=== PATIENT | female | born 1965 | race Caucasian/White ===

== ENCOUNTER 2017-01-30 21:33 | Observation (INO) ==
[2017-01-30 22:27] LABS: MANUAL DIFF NEEDED? NO; URINE CULTURE NEEDED? NO; URINE MICRO REVIEW NEEDED? NO; URINE SOURCE CATH
[2017-01-30 22:36] LABS: BASO% 0.5 % (0.0-0.8); EOS# 0.12 X1000 (0.0-0.7); EOS% 1.6 % (0.0-10.0); HEMATOCRIT 42.3 % (37.0-47.0); HEMOGLOBIN 14.1 g/dL (12.0-16.0); IMM GRAN# 0.03 X1000 (0.0-0.04); IMM GRAN% 0.4 % (0.0-0.5); LYMPH# 3.34 X1000 (1.2-3.4); LYMPH% 43.2 % (20.5-51.1); MCH 29.3 PG (27-31); MCHC 33.3 g/dL (33-37); MCV 87.8 FL (81-99); MONO% 6.5 % (1.7-9.3); MPV 9.3 FL (7.4-10.4); NEUT% 47.8 % (42.2-75.2); PLT 246 X1000 (130-400); RBC 4.82 XMIL (4.2-5.4)
[2017-01-30 22:51] LABS: BILIRUBIN URINE NEGATIVE (NEGATIVE); BLOOD URINE NEGATIVE (NEGATIVE); COLOR YELLOW; GLUCOSE URINE NEGATIVE (NEGATIVE); LEUKOCYTES URINE NEGATIVE (NEGATIVE); NITRITE URINE NEGATIVE (NEGATIVE); PROTEIN URINE TRACE mg/dL (NEGATIVE); SP GRAVITY URINE 1.021; TURBIDITY URINE CLEAR (CLEAR); UR EPITHELIAL CELLS <10 /HPF (<10); URINE BACTERIA NEGATIVE /HPF; URINE RBC <10 /HPF (<10); URINE WBC <10 /HPF (<10); UROBILINOGEN URINE NORMAL (NORMAL)
[2017-01-30 22:54] LABS: UR AMPHETAMINES QUAL NONE DETECTED (NONE DETECT); UR BARBITUATES QUAL NONE DETECTED (NONE DETECT); UR BENZODIAZEPIN QUAL NONE DETECTED (NONE DETECT); UR CANNABINOIDS QUAL NONE DETECTED (NONE DETECT); UR COCAINE QUAL NONE DETECTED (NONE DETECT); UR METHADONE QUAL NONE DETECTED (NONE DETECT); UR OPIATES QUAL NONE DETECTED (NONE DETECT); UR OXYCODONE QUAL NONE DETECTED (NONE DETECT); UR PCP QUAL NONE DETECTED (NONE DETECT)
[2017-01-30 22:57] LABS: ACETAMINOPHEN < 1.2 ug/mL (10-30); AGAP 15; ALBUMIN 4.3 g/dL (3.5-5.0); ALKALINE PHOSPHATASE 64 U/L (32-104); BUN 13 mg/dL (8-22); CALCIUM 9.3 mg/dL (8.8-10.2); CHLORIDE 104 mmol/L (98-107); COSMO 288; GOT 22 U/L (10-30); GPT 25 U/L (10-36); POTASSIUM 4.2 mmol/L (3.5-5.1); SODIUM 144 mmol/L (136-145); TCO2 25 mmol/L (25-35); TOTAL BILIRUBIN 0.19 mg/dL (0.20-1.00)
[2017-01-30 23:16] LABS: FREE T4 1.16 ng/dL (0.93-1.70)
--- NOTE | 2017-01-30 23:35 | PROVIDER DOCUMENTATION ---
This chart was entered by Jia Anderson Scribe, acting as scribe for Adrián Calderon MD. [facility] Abuse/Overdose - General Chief Complaint: Suicide Attempt Stated Complaint: OVERDOSE Time Seen by Provider: 01/30/17 21:50 Source: family Unable to obtain history due to:: urgency (minimally responsive) Allergies/Adverse Reactions: Allergies Allergy/AdvReac Type Severity Reaction Status Date / Time meperidine HCl * Allergy Severe SWELLING Verified 08/14/12 04:45 [From Demerol] Home Medications: Home Medication List Medication Instructions Recorded Confirmed Last Taken Type Doxycycline 100 mg PO BID #20 tablet 08/14/12 Unknown Rx Tramadol [Ultram] 50 mg PO Q6H PRN PRN #20 tablet 08/14/12 Unknown Rx - History of Present Illness-Drug/Alcohol Nature of Presenting Problem: 51 year old F presents to the ED via POV with a cc of an overdose. Pt states that tonight they got into an argument and started saying "You won't have to deal with me anymore" and other threatening things. He states that she walked in about 30 minutes [employer] and handed him an empty bottle of Ambien. PT had it filled on 01/22 and takes one 10 mg tablet at night. He states that pt has had some alcohol consumption tonight also. states that since 2010 she has been through a lot. In 2010 she lost her son to suicide and last year she lost her father and grandmother. states that pt has been threatening "You won 't have to deal with me anymore." on occasion but he states tonight is the first night to make an attempt. states that he has been begging her to go get help but states that she will not and has had one of their children and him put on medications. This episode of drinking or use began:: 1 hour ago Severity: reports: mild Psychiatric Complaints: reports: other (suicide attempt) Similar Symptoms Previously?: No Recently seen or treated by another doctor?: No Review of Systems - Adult - REVIEW OF SYSTEMS - ADULT ROS:: unobtainable per condition (minimally responsive) Constitutional: reports: no symptoms reported Eyes: reports: no symptoms reported Ears, Nose, Mouth & Throat: reports: no symptoms reported Cardiovascular: reports: no symptoms reported Respiratory: reports: no symptoms reported Gastrointestinal: reports: no symptoms reported Genitourinary: reports: no symptoms reported Musculoskeletal: reports: no symptoms reported Integumentary: reports: no symptoms reported Neurological: reports: no symptoms reported Psychiatric: reports: no symptoms reported Endocrine: reports: no symptoms reported Hematologic/Lymphatic: reports: no symptoms reported Allergic/Immunologic: reports: no symptoms reported All Other Systems: Reviewed and Negative Past History - Adult - PAST MEDICAL HISTORY-ADULT Review of Records: reports: Nursing Assessment Review, Medications Reviewed Major Childhood Illnesses: reports: denies history - PRIOR SURGERIES/PROCEDURES Surgical/Procedure History: reports: tonsillectomy, breast, other (toenail sx, wisdom teeth) - IMMUNIZATION STATUS Childhood Immunizations: See Nurse Assessment Flu Vaccine: See Nurse Assessment - SOCIAL HISTORY Smoking: non-smoker Substance Use: none/never Alcohol Use Frequency: occasionally Physical Exam-General - PHYSICAL EXAM-ADULT Exam Limited by: minimally responsive Initial Vital Signs Reviewed: Yes - CONSTITUTIONAL General Appearance: lethargic, slow to respond - EYES Eyes: PERRL/EOMI - RESPIRATORY Respiratory: chest non-tender, lungs clear, normal breath sounds - CARDIOVASCULAR Cardiovascular: normal peripheral pulses, regular rate, rhythm, no edema - GASTROINTESTINAL (ABDOMEN) Abdominal Exam: soft - SKIN Integumentary: normal color, normal turgor, warm/dry Progress - PLAN OF CARE/RESULTS Progress/Plan/Lab Results: Vital Signs - 8 hr 01/30/17 21:37 Pulse Rate 105 H Respiratory Rate 20 Blood Pressure 113/77 O2 Sat by Pulse Oximetry 94 L Laboratory Results - last 24 hr 01/30/17 01/30/17 01/30/17 21:57 21:57 21:57 WBC 7.74 RBC 4.82 Hgb 14.1 Hct 42.3 MCV 87.8 MCH 29.3 MCHC 33.3 RDW Std Deviation 13.3 Plt Count 246 MPV 9.3 Immature Gran % (Auto) 0.4 Neut % (Auto) 47.8 Lymph % (Auto) 43.2 [place] % (Auto) 6.5 Eos % (Auto) 1.6 Baso % (Auto) 0.5 Immature Gran # (Auto) 0.03 Neut # (Auto) 3.71 Lymph # (Auto) 3.34 [place] # (Auto) 0.50 Eos # (Auto) 0.12 Baso # (Auto) 0.04 Sodium 144 Potassium 4.2 Chloride 104 Carbon Dioxide 25 Anion Gap 15 BUN 13 Creatinine 0.8 Estimated GFR/1.73 m2 > 60 BUN/Creatinine Ratio 16 Glucose 122 H POC Glucose Calculated Osmolality 288 Calcium 9.3 Total Bilirubin 0.19 L AST 22 ALT 25 Alkaline Phosphatase 64 Total Protein 7.0 Albumin 4.3 Globulin 2.7 Albumin/Globulin Ratio 1.6 Vitamin B12 TSH Free T4 Urine Source Urine Color Urine Turbidity Urine pH Ur Specific Saline Urine Protein Ur Glucose (Stick) Ur Ketones (Stick) Urine Blood Urine Nitrite Urine Bilirubin Urobilinogen Dipstick Urine Leukocytes Urine WBC (Auto) Urine RBC (Auto) U Epithel Cells (Auto) Urine Bacteria (Auto) Urine Test Salicylates < 3.00 L Urine Opiates Screen Ur Oxycodone Screen Ur Methadone, Qual Acetaminophen < 1.2 L Ur Barbiturates Screen Ur Phencyclidine Scrn Ur Amphetamines Screen U Benzodiazepines Scrn Urine Cocaine Screen U Cannabinoids Screen Plasma/Serum Ethyl Alc 01/30/17 01/30/17 01/30/17 21:57 21:57 21:57 WBC RBC Hgb Hct MCV MCH MCHC RDW Std Deviation Plt Count MPV Immature Gran % (Auto) Neut % (Auto) Lymph % (Auto) [place] % (Auto) Eos % (Auto) Baso % (Auto) Immature Gran # (Auto) Neut # (Auto) Lymph # (Auto) [place] # (Auto) Eos # (Auto) Baso # (Auto) Sodium Potassium Chloride Carbon Dioxide Anion Gap BUN Creatinine Estimated GFR/1.73 m2 BUN/Creatinine Ratio Glucose POC Glucose Calculated Osmolality Calcium Total Bilirubin AST ALT Alkaline Phosphatase Total Protein Albumin Globulin Albumin/Globulin Ratio Vitamin B12 737 TSH 0.89 Free T4 1.16 Urine Source CATH Urine Color YELLOW Urine Turbidity CLEAR Urine pH 6.0 Ur Specific Saline 1.021 Urine Protein TRACE A Ur Glucose (Stick) NEGATIVE Ur Ketones (Stick) NEGATIVE Urine Blood NEGATIVE Urine Nitrite NEGATIVE Urine Bilirubin NEGATIVE Urobilinogen Dipstick NORMAL Urine Leukocytes NEGATIVE Urine WBC (Auto) <10 Urine RBC (Auto) <10 U Epithel Cells (Auto) <10 Urine Bacteria (Auto) NEGATIVE Urine Test NEGATIVE Salicylates Urine Opiates Screen Ur Oxycodone Screen Ur Methadone, Qual Acetaminophen Ur Barbiturates Screen Ur Phencyclidine Scrn Ur Amphetamines Screen U Benzodiazepines Scrn Urine Cocaine Screen U Cannabinoids Screen Plasma/Serum Ethyl Alc 01/30/17 01/30/17 21:57 22:15 WBC RBC Hgb Hct MCV MCH MCHC RDW Std Deviation Plt Count MPV Immature Gran % (Auto) Neut % (Auto) Lymph % (Auto) [place] % (Auto) Eos % (Auto) Baso % (Auto) Immature Gran # (Auto) Neut # (Auto) Lymph # (Auto) [place] # (Auto) Eos # (Auto) Baso # (Auto) Sodium Potassium Chloride Carbon Dioxide Anion Gap BUN Creatinine Estimated GFR/1.73 m2 BUN/Creatinine Ratio Glucose POC Glucose 127 H Calculated Osmolality Calcium Total Bilirubin AST ALT Alkaline Phosphatase Total Protein Albumin Globulin Albumin/Globulin Ratio Vitamin B12 TSH Free T4 Urine Source Urine Color Urine Turbidity Urine pH Ur Specific Saline Urine Protein Ur Glucose (Stick) Ur Ketones (Stick) Urine Blood Urine Nitrite Urine Bilirubin Urobilinogen Dipstick Urine Leukocytes Urine WBC (Auto) Urine RBC (Auto) U Epithel Cells (Auto) Urine Bacteria (Auto) Urine Test Salicylates Urine Opiates Screen NONE DETECTED Ur Oxycodone Screen NONE DETECTED Ur Methadone, Qual NONE DETECTED Acetaminophen Ur Barbiturates Screen NONE DETECTED Ur Phencyclidine Scrn NONE DETECTED Ur Amphetamines Screen NONE DETECTED U Benzodiazepines Scrn NONE DETECTED Urine Cocaine Screen NONE DETECTED U Cannabinoids Screen NONE DETECTED Plasma/Serum Ethyl Alc Orders Category Date Time Status CHEST-PORTABLE [RAD] Stat Exams 01/30/17 22:05 Taken ACETAMINOPHEN [TDM] Stat Lab 01/30/17 21:57 Completed ALCOHOL BLOOD Stat Lab 01/30/17 21:57 Completed CBC WITH ELECTRONIC DIFF [HEME] Stat Lab 01/30/17 21:57 Completed COMPREHENSIVE METABOLIC PANEL [CHEM] Stat Lab 01/30/17 21:57 Completed FREE T4 Stat Lab 01/30/17 21:57 Completed TEST-URINE [PREG] Stat Lab 01/30/17 21:57 Completed SALICYLATES [TDM] Stat Lab 01/30/17 21:57 Completed TSH Stat Lab 01/30/17 21:57 Completed URINALYSIS W/POSS RFLX CULT-1 [URINALYSIS] Stat Lab 01/30/17 21:57 Completed URINE DRUG SCREEN Stat Lab 01/30/17 21:57 Completed VITAMIN B12 Stat Lab 01/30/17 21:57 Completed EKG [EKG] Stat Ther 01/30/17 21:51 Ordered Result Diagrams: 01/30/17 21:57 01/30/17 21:57 - EKG 1 Time of EKG reading by physician:: 21:56 EKG Read and Signed by:: Adrián Calderon EKG Interpretation (*Must complete 3 of following elements*): Abnormal Rate: 96 Rhythm: NSR QRS: other (low voltage QRS) Comments: possible LAE, prolonged QT - CONSULTS/PCP/HOSPITALIST Notification #1 *Consult/PCP/Hospitalist*: Dr. Sanchez(hospitalist) Departure - Departure Time of Disposition Decision: 23:34 DIAGNOSIS: Suicide attempt by drug ingestion Qualifiers: Encounter type: initial encounter Qualified Code(s): T50.902A - Poisoning by unspecified drugs, medicaments and biological substances, intentional self-harm , initial encounter Disposition: ADMITTED INPATIENT 09 Certified Medical Emergency: Emergent Condition: Fair Referrals and Follow-Ups: Deondre Gutierrez DO [Primary Care Provider] - - Critical Care Note This patient required my direct & personal management of CC.: No This chart was documented by the indicated scribe, (Jia Anderson Scribe) and accurately reflects the services I performed and decisions made by me, Adrián Calderon MD, as attested by the provider's signature.
[2017-01-31] MEDS ORDERED: TYLENOL PO PRN (00:23)
[2017-01-31] MEDS: CLEOCIN PO SCH ×3 (01:00→20:14)
--- NOTE | 2017-01-31 01:28 | HISTORY AND PHYSICAL ---
REASON FOR ADMISSION: Suicidal attempt this evening. HISTORY OF PRESENT ILLNESS: Ms. Laure Singh is a 51-year-old lady with no significant past medical history. She was brought in by her , when she deliberately took 23 tablets of 10 mg Ambien. On her way here, she threw up some of the pills, and then again threw up some more while in the waiting room. Apparently, according to the patient, she and her spouse were arguing over some domestic issues. She got very frustrated and decided to take 23 pills. Her spouse informs me that she has been chronically depressed since their son committed suicide in 2010, and her niece committed suicide again last year. The patient has refused to seek any professional help. In the past, she has made many open threats that she will kill herself, but never followed through up until tonight. When I spoke to the patient, the only complaint she has is that she has some pain in her left eye, which has been treated with doxycycline. She had evidence of left periorbital cellulitis, with possible dacryocystitis. REVIEW OF SYSTEMS: Positive for insomnia, but the patient denies any audiovisual hallucinations. Grossly negative per patient, who is very reticent at this point in time. Twelve-system review is negative. Positive findings per HPI. ALLERGIES: Demerol. MEDICATIONS: Ultram and doxycycline recently prescribed for her eye infection. SOCIAL HISTORY: No alcohol or illicit drug use. She is . Lives with her spouse. FAMILY HISTORY: Notable for end-stage kidney disease in her dad. LABORATORY WORK: EKG shows normal sinus rhythm, with left axis deviation, incomplete right bundle branch block, and QT prolongation of 490. White count 7000, hemoglobin and hematocrit 14 and 42, platelets 246,000. Glucose 122. B12, TSH, free T4 also negative. LFTs normal. Salicylates and acetaminophen all negative. Alcohol level is undetected. Urinalysis clean. PHYSICAL EXAMINATION: GENERAL: Middle-aged woman who has a sad affect and depressed mood. She is alert and oriented to person, place, and time, but a little drowsy from the effects of Ambien. VITAL SIGNS: Blood pressure 112/77, heart rate 105, respirations 20. She is afebrile, at 94% on room air. HEENT: Head is normocephalic, atraumatic. Eyes: She has mild left periorbital fading erythema, and a small 0.5 cm swelling in the nasal side of her left eye. It is tender to touch and mobile. Otherwise, AARON, EOMI. She is anicteric, not pale. ENT and oropharynx: Normal. NECK: Supple. No JVD or carotid bruit. No thyromegaly. CHEST: Clear to auscultation. Good air entry to both lung kimball. CARDIOVASCULAR: First and second heart sounds heard. No gallops, murmurs, or rubs. Rhythm is regular. ABDOMEN: Full, soft, nontender. No mass or organomegaly. Bowel sounds normal. RECTAL: Deferred at this time. EXTREMITIES: No edema, clubbing, or peripheral cyanosis. NEUROLOGIC: Grossly intact. No focal deficits. No tremors or myoclonus. SKIN: Intact. No breakdown or lesions of skin. MUSCULOSKELETAL: Grossly normal. ASSESSMENT: 1. At this time is mild toxic encephalopathy from Ambien. 2. Abnormal EKG, QT prolongation at 419. 3. Suicidal attempt. PLAN: At this time, we will admit patient to ICU. Aggressive IV fluid resuscitation to increase excretion of Ambien. Neurologic checks will also be done. Repeat the EKG in the morning while migraine is pending. If the magnesium level is low, we will correct accordingly. Will consult Andres Osman to see patient in the a.m. once she is clinically stable. Start her on clindamycin for her left periorbital cellulitis, and I encouraged her to use warm compresses for her swelling in her left eye. cc: DO Seb Tomlinson MD
[2017-01-31] MEDS: NS 1,000 ML IV SCH ×5 (01:37→20:31)
[2017-01-31 05:18] LABS: AGAP 11; BUN 12 mg/dL (8-22); CALCIUM 9.1 mg/dL (8.8-10.2); CHLORIDE 105 mmol/L (98-107); COSMO 283; SODIUM 141 mmol/L (136-145); TCO2 25 mmol/L (25-35)
--- NOTE | 2017-01-31 05:25 | EKG Report ---
Test Performed on : 01/30/2017 9:56:37 PM Test Reason : od Blood Pressure : / mmHG Vent. Rate : 096 BPM Atrial Rate : 096 BPM P-R Int : 140 ms QRS Dur : 080 ms QT Int : 388 ms P-R-T Axes : 044 -17 002 degrees QTc Int : 490 ms Normal sinus rhythm. Possible Left atrial enlargement Low voltage QRS Prolonged QT Abnormal ECG No previous ECGs available Unconfirmed Result
--- NOTE | 2017-01-31 08:36 | Diag Imaging Result Document ---
PROCEDURE NAME: CHEST-PORTABLE - 01/30/2017 AP PORTABLE CHEST AT 2215 HOURS: FINDINGS: Inspiration is suboptimal. No focal opacity is present. The heart size is at the upper limits of normal. IMPRESSION: Poor inspiration. No definite evidence of acute disease otherwise.
[2017-01-31] MEDS: ZOFRAN IV PRN ×2 (09:25→14:09)
[2017-01-31] MEDS: PEPCID PO SCH ×2 (11:06→20:21)
[2017-01-31] MEDS ORDERED: VIGAMOX 0.5% OPH SOLN OPH SCH (13:00)
[2017-01-31] MEDS: OFIRMEV 1000 MG/ISOTONIC SOLN 1,000 MG/100 ML BOTTLE IV SCH ×2 (14:06→18:43)
[2017-01-31] MEDS: VIGAMOX 0.5% OPH SOLN OPH SCH ×2 (15:00→20:14)
[2017-02-01] MEDS: OFIRMEV 1000 MG/ISOTONIC SOLN 1,000 MG/100 ML BOTTLE IV SCH ×2 (00:55→06:50)
[2017-02-01] MEDS: NS 1,000 ML IV SCH ×2 (03:17→08:55)
[2017-02-01] MEDS: CLEOCIN PO SCH (06:00)
[2017-02-01 07:55] LABS: MANUAL DIFF NEEDED? NO
[2017-02-01] MEDS: PEPCID PO SCH (08:40)
[2017-02-01] MEDS: VIGAMOX 0.5% OPH SOLN OPH SCH (08:41)
[2017-02-01 08:44] LABS: BASO% 0.3 % (0.0-0.8); EOS# 0.08 X1000 (0.0-0.7); EOS% 1.4 % (0.0-10.0); HEMATOCRIT 38.6 % (37.0-47.0); HEMOGLOBIN 12.4 g/dL (12.0-16.0); LYMPH# 1.85 X1000 (1.2-3.4); LYMPH% 32.3 % (20.5-51.1); MCH 29.3 PG (27-31); MCHC 32.1 g/dL (33-37); MCV 91.3 FL (81-99); MONO# 0.38 X1000 (0.11-0.59); MONO% 6.6 % (1.7-9.3); MPV 9.7 FL (7.4-10.4); NEUT% 59.4 % (42.2-75.2); PLT 179 X1000 (130-400); RBC 4.23 XMIL (4.2-5.4)
[2017-02-01 08:51] LABS: AGAP 10; BUN 8 mg/dL (8-22); CALCIUM 8.4 mg/dL (8.8-10.2); CHLORIDE 111 mmol/L (98-107); COSMO 291; POTASSIUM 3.6 mmol/L (3.5-5.1); SODIUM 146 mmol/L (136-145); TCO2 25 mmol/L (25-35)
[2017-02-01] MEDS ORDERED: NS 1,000 ML IV SCH (09:02)
[2017-02-01 09:52] VITALS: BP 123/69
--- NOTE | 2017-02-01 14:30 | DISCHARGE SUMMARY ---
ADMISSION DATE: 01/31/2017 DISCHARGE DATE: 02/01/2017 DISCHARGE DIAGNOSES: 1. Suicidal attempt, resolved. The patient is not suicidal any more. 2. Mild toxic encephalopathy, completely resolved. PROCEDURE PERFORMED: Chest x-ray showed poor inspiration but no definite evidence of acute disease. CONSULTATIONS: None. HISTORY OF PRESENT ILLNESS: This is a 51-year-old female with history of depression, who was admitted to the hospital because she was brought by her . Reportedly she had taken 23 tablets of Ambien. The patient was admitted to the hospital for toxic encephalopathy and suicidal attempt. The patient has been in the Intensive Care Unit, today is definitely more fine. The patient reported that she was feeling depressed for at least 20 or 25 years. Apparently her son has as well as some close members of her family, but she really did not look for any medical attention for depression. At this time, she is not suicidal anymore. She regrets to having done this, and she requests to have some medications to try to treat depression. We decided to start Remeron and see her primary care physician in the next 2 weeks. The patient acknowledges understanding. The patient is going to be discharged in stable condition. PHYSICAL EXAMINATION: VITAL SIGNS: Temperature is 98.1, heart rate 59, respiratory rate 15, blood pressure 123/69, O2 saturation is 98% on room air. GENERAL: This is a 51-year-old female lying in bed, in no acute distress. HEENT: Head is normocephalic and atraumatic. Nonicteric sclerae. Pale conjunctivae. Mucous membranes are moist. NECK: Supple. No JVD noted. No carotid bruit. No lymphadenopathy. No thyromegaly. CARDIOVASCULAR: S1 and S2. No gallops or rubs. Regular rate and rhythm. RESPIRATORY: Clear bilaterally to auscultation. No work of breathing or using accessory muscles. ABDOMEN: Soft, nontender to palpation. Bowel sounds present. No organomegaly. EXTREMITIES: No cyanosis, clubbing or edema. Peripheral pulses present in both legs. NEUROLOGICAL: The patient is alert and oriented x3, able to move all 4 extremities. Cranial nerves II through XII are grossly normal. DISCHARGE DISPOSITION: The patient is going home with self care. DISCHARGE MEDICATIONS: Remeron 30 mg 1/2 tablet at bedtime for 1 week and then 1 tablet p.o. daily for a week, Vigamox 1 drop in affected eye 3 times a day for 1 week, ibuprofen p.r.n. for pain. cc: Feng De Oliveira MD
--- NOTE | 2017-02-03 06:18 | EKG Report ---
Test Performed on : 02/01/2017 06:23:46 AM Test Reason : chest pain Blood Pressure : / mmHG Vent. Rate : 067 BPM Atrial Rate : 067 BPM P-R Int : 128 ms QRS Dur : 086 ms QT Int : 418 ms P-R-T Axes : 047 -07 001 degrees QTc Int : 441 ms Normal sinus rhythm. Low voltage QRS Borderline ECG When compared with ECG of 30-JAN-2017 21:56, QT has shortened Confirmed by Mendy CARSON, Miko Gordillo ([id number]) on 02/03/2017 7:31:40 AM
== END 2017-02-01 12:20 | disposition home or self-care (01) ==
LOC: ED 21:33 → ICU 01-31 01:17 → SUATTDRO 01-31 01:17 → INTOOBSV 01-31 01:17
PROVIDERS: ATTEND Internal Medicine